=== PATIENT | female | born 1990 | race Caucasian/White ===

== ENCOUNTER → 2017-11-20 | Outpatient (REF) | payer OTHER ==
[2017-11-20 12:16] LABS: HEMATOCRIT 36.4 % (36.0-47.0); HEMOGLOBIN 12.3 g/dl (12.0-15.5); MEAN CORPUSCULAR HEMOGLOBIN 28.1 pg (27.0-33.0); MEAN CORPUSCULAR HGB CONC 33.8 g/dl (32.0-36.5); MEAN CORPUSCULAR VOLUME 83.1 fl (80.0-96.0); PLATELET COUNT, AUTOMATED 345 10^3/uL (150-450); RED BLOOD COUNT 4.38 10^6/uL (4.00-5.40); WHITE BLOOD COUNT 7.1 10^3/uL (4.0-10.0)
== END ==
LOC: M SFHCADAM 09:08
DX: N92.0 Excessive and frequent menstruation with regular cycle (principal)

== ENCOUNTER → 2017-11-22 | Outpatient (CLI) | payer BC | LOC: M WHC 12:45 | DX: N92.0 Excessive and frequent menstruation with regular cycle (principal) | CPT/HCPCS: 76830 ==

== ENCOUNTER → 2018-01-28 | Outpatient (REF) | payer OTHER | LOC: M SFHCADAM 11:40 | DX: E03.9 Hypothyroidism, unspecified (principal) ==

== ENCOUNTER → 2018-02-06 | Outpatient (REF) | payer OTHER | LOC: M SFHCADAM 09:47 | DX: Z12.4 Encounter for screening for malignant neoplasm of cervix (principal) | CPT/HCPCS: G0123 ==

== ENCOUNTER → 2018-06-07 | Outpatient (REF) | payer OTHER ==
[~2018-06-07] MED LIST: IBUP80TA PO; MAPA500T2 PO; PRENTAB55 PO; TYLE1TAB5 PO
[2018-06-07 19:35] LABS: FREE T4 0.95 NG/DL (0.76-1.46); THYROID STIMULATING HORMONE 2.23 uIU/ML (0.358-3.740)
== END ==
LOC: M SFHCADAM 15:21
PROVIDERS: ATTEND Physician Assistant
DX: E03.9 Hypothyroidism, unspecified (principal)

== ENCOUNTER → 2020-05-13 | Outpatient (REF) | payer OTHER | LOC: M SFHCADAM 13:52 | PROVIDERS: ATTEND Physician Assistant | DX: F41.9 Anxiety disorder, unspecified (principal); E03.9 Hypothyroidism, unspecified; G43.009 Migraine without aura, not intractable, without status migrainosus ==

== ENCOUNTER → 2020-05-14 | Outpatient (REF) | payer OTHER ==
[2020-05-14 13:00] LABS: HEMATOCRIT 38.9 % (36.0-47.0); HEMOGLOBIN 12.5 g/dl (12.0-15.5); MEAN CORPUSCULAR HEMOGLOBIN 27.6 pg (27.0-33.0); MEAN CORPUSCULAR HGB CONC 32.1 g/dl (32.0-36.5); MEAN CORPUSCULAR VOLUME 85.9 fl (80.0-96.0); PLATELET COUNT, AUTOMATED 348 10^3/uL (150-450); RED BLOOD COUNT 4.53 10^6/uL (4.00-5.40); WHITE BLOOD COUNT 6.5 10^3/uL (4.0-10.0)
[2020-05-14 13:44] LABS: ALBUMIN 3.4 GM/DL (3.2-5.2); ALT/SGPT 28 U/L (12-78); BILIRUBIN,TOTAL 0.3 MG/DL (0.2-1.0); BLOOD UREA NITROGEN 14 MG/DL (7-18); CALCIUM LEVEL 9.9 MG/DL (8.5-10.1); CARBON DIOXIDE LEVEL 26 MEQ/L (21-32); CHLORIDE LEVEL 105 MEQ/L (98-107); CREATININE FOR GFR 0.68 MG/DL (0.55-1.30); FREE T4 0.97 NG/DL (0.76-1.46); GLOMERULAR FILTRATION RATE > 60.0 (>60); GLUCOSE, FASTING 85 MG/DL (70-100); POTASSIUM SERUM 4.6 MEQ/L (3.5-5.1); SODIUM LEVEL 137 MEQ/L (136-145); TOTAL PROTEIN 7.3 GM/DL (6.4-8.2)
== END ==
LOC: M SFHCADAM 09:06
PROVIDERS: ATTEND Physician Assistant
DX: F41.9 Anxiety disorder, unspecified (principal); E03.9 Hypothyroidism, unspecified; G43.009 Migraine without aura, not intractable, without status migrainosus

== ENCOUNTER → 2020-08-31 | Outpatient (CLI) | payer OTHER | LOC: M LABSMTC 10:02 | PROVIDERS: ATTEND Pediatrics | DX: Z11.52 Encounter for screening for COVID-19 (principal) ==

== ENCOUNTER 2020-10-22 17:26 | Emergency (ER) | payer OTHER ==
[~2020-10-22] VITALS: Ht 162.6 cm; Wt 99.0 kg
[2020-10-22] MEDS ORDERED: LEXA1TAB2 PO (17:35)
[2020-10-22] MEDS ORDERED: LEVO-86 PO (17:35)
[2020-10-22] MEDS ORDERED: CYCL-707 PO (17:35)
--- NOTE | 2020-10-22 18:47 | REP ---
INDICATION: abdominal pain, ? constipation COMPARISON: None. TECHNIQUE: Supine view of the abdomen and pelvis. FINDINGS: Bowel gas pattern is nonspecific and without obstruction or perforation. No significant fecal stasis is suggested. No organomegaly. No abnormal calcifications. Skeletal structures intact. IMPRESSION: Normal abdominal radiograph. <Electronically signed by Maynor Tellez > 10/22/20 [id number]
--- NOTE | 2020-10-22 21:01 | REPVR ---
PROCEDURE INFORMATION: Exam: US Pelvis Complete, Transabdominal and US Duplex Artery and Vein, Ovaries, Complete Exam date and time: 10/22/2020 8:02 PM Age: 30 years old Clinical indication: Pelvic pain TECHNIQUE: Imaging protocol: Real-time transabdominal pelvic ultrasound with image documentation. Real-time duplex ultrasound scan of the arterial and venous flow of the ovaries with B-mode, color Doppler flow and spectral waveform analysis. Complete Pelvis, Complete Duplex. COMPARISON: PELVIS NON-OB COMPLETE US 11/22/2017 12:55 PM FINDINGS: Uterus/cervix: The uterus measures 10 x 5.4 by 6.3 cm. Endometrial stripe measures 1 in thickness. Right adnexa:Right ovary measures 2.5 x 2.1 x 1.7 cm. Arterial and venous blood flow seen in the right ovary on color Doppler examination. Left adnexa: The left ovary measures 3.7 x 3 x 3.2 cm. 0.8 cm complex follicle/cyst present in the left ovary. Arterial and venous blood flow demonstrated to the left ovary on color Doppler and pulse Doppler examination. Free fluid: None. Bladder: Bladder is incompletely distended which limits visualization of the uterus and the adnexa. IMPRESSION: 1. No evidence of ovarian torsion. 2. Complex follicle in the left ovary within the range of normal for a menstruating female and could represent a hemorrhagic follicle/cyst. 3. The endometrial stripe is thickened. This could be an artifact of measurement or reflect endometrial hyperplasia, dysplasia or polyps as the most likely etiologies in this patient. Follow-up ultrasound in 6 weeks might be considered Electronically signed by: Tamika Saucedo On 10/22/2020 21:00:14 PM
[2020-10-22 21:41] VITALS: BP 139/91
== END 2020-10-22 21:43 | disposition home or self-care (01) ==
LOC: M ED 17:26
DX: N85.00 Endometrial hyperplasia, unspecified (principal); Z79.899 Other long term (current) drug therapy

== ENCOUNTER → 2020-11-09 | Outpatient (REF) | payer OTHER ==
[~2020-11-09] MED LIST changes: +CYCL-707 PO; +LEVO-86 PO; +LEXA1TAB2 PO
[2020-11-09 17:30] LABS: FREE T4 0.95 NG/DL (0.76-1.46); THYROID STIMULATING HORMONE 1.78 uIU/ML (0.358-3.740)
[2020-11-09 17:32] LABS: LUTEINIZING HORMONE 10.7 mIU/mL
[2020-11-09 17:33] LABS: FOLLICLE STIMULATING HORMONE 5.5 mIU/mL
[2020-11-09 17:47] LABS: HEMATOCRIT 36.7 % (36.0-47.0); HEMOGLOBIN 11.8 g/dl (12.0-15.5); MEAN CORPUSCULAR HEMOGLOBIN 26.3 pg (27.0-33.0); MEAN CORPUSCULAR HGB CONC 32.2 g/dl (32.0-36.5); MEAN CORPUSCULAR VOLUME 81.9 fl (80.0-96.0); PLATELET COUNT, AUTOMATED 355 10^3/uL (150-450); RED BLOOD COUNT 4.48 10^6/uL (4.00-5.40); WHITE BLOOD COUNT 5.4 10^3/uL (4.0-10.0)
== END ==
LOC: M LAB REF 16:29
PROVIDERS: ATTEND Obstetrics & Gynecology
DX: N92.1 Excessive and frequent menstruation with irregular cycle (principal)

== ENCOUNTER → 2021-03-04 | Outpatient (REF) | payer OTHER | LOC: M SFHCADAM 15:56 | PROVIDERS: ATTEND Physician Assistant | DX: J06.9 Acute upper respiratory infection, unspecified (principal) ==

== ENCOUNTER → 2021-05-10 | Outpatient (REF) | payer OTHER ==
[2021-05-10 14:06] LABS: FREE T4 1.02 NG/DL (0.76-1.46); THYROID STIMULATING HORMONE 2.37 uIU/ML (0.358-3.740)
== END ==
LOC: M SFHCADAM 09:36
PROVIDERS: ATTEND Physician Assistant
DX: Z12.4 Encounter for screening for malignant neoplasm of cervix (principal); E03.9 Hypothyroidism, unspecified

== ENCOUNTER → 2021-12-27 | Outpatient (CLI) | payer OTHER | LOC: M WUC 10:40 | PROVIDERS: ATTEND Student in an Organized Health Care Education/Training Program | DX: M25.511 Pain in right shoulder (principal) ==

== ENCOUNTER → 2022-04-13 | Outpatient (CLI) | payer OTHER ==
[~2022-04-13] MED LIST changes: +ISOVUE-370 76% 100ML VIAL As Ordered ONE
== END ==
LOC: M RAD 08:27
PROVIDERS: ATTEND Physician Assistant
DX: M89.8X1 Other specified disorders of bone, shoulder (principal); R22.2 Localized swelling, mass and lump, trunk

== ENCOUNTER → 2022-09-19 | Outpatient (CLI) | payer OTHER ==
[~2022-09-19] MED LIST changes: -ISOVUE-370 76% 100ML VIAL As Ordered ONE
== END ==
LOC: M ADAMS 14:59
PROVIDERS: ATTEND Physician Assistant
DX: S93.401S Sprain of unspecified ligament of right ankle, sequela (principal); X58.XXXA Exposure to other specified factors, initial encounter; Y92.9 Unspecified place or not applicable; Y93.9 Activity, unspecified; Y99.9 Unspecified external cause status

== ENCOUNTER → 2022-09-19 | Outpatient (REF) | payer OTHER ==
[2022-09-19 17:04] LABS: BASO # 0.1 10^3/uL (0.0-0.2); BASO % 1.2 % (0.0-1.0); EOS # 0.3 10^3/uL (0.0-0.5); EOS % 4.6 % (0.0-3.0); HEMATOCRIT 41.3 % (36.0-47.0); HEMOGLOBIN 13.8 g/dl (12.0-15.5); LYMPH # 1.9 10^3/uL (1.5-5.0); LYMPH % 28.7 % (24.0-44.0); MEAN CORPUSCULAR HEMOGLOBIN 29.2 pg (27.0-33.0); MEAN CORPUSCULAR HGB CONC 33.4 g/dl (32.0-36.5); MEAN CORPUSCULAR VOLUME 87.5 fl (80.0-96.0); MONO # 0.5 10^3/uL (0.0-0.8); MONO % 7.2 % (2.0-8.0); NEUTROPHILS # 3.9 10^3/uL (1.5-8.5); NEUTROPHILS % 57.9 % (36.0-66.0); PLATELET COUNT, AUTOMATED 334 10^3/uL (150-450); RED BLOOD COUNT 4.72 10^6/uL (4.00-5.40); WHITE BLOOD COUNT 6.8 10^3/uL (4.0-10.0)
[2022-09-19 17:29] LABS: FREE T4 1.05 NG/DL (0.89-1.76)
[2022-09-19 17:31] LABS: ALBUMIN 3.7 G/DL (3.2-5.2); ALKALINE PHOSPHATASE 97 U/L (46-116); ALT/SGPT 27 U/L (7.0-40); AST/SGOT 19 U/L (<34); BILIRUBIN,TOTAL 0.3 MG/DL (0.3-1.2); BLOOD UREA NITROGEN 11 MG/DL (9-23); CALCIUM LEVEL 9.4 MG/DL (8.5-10.1); CARBON DIOXIDE LEVEL 26 MMOL/L (20-31); CHLORIDE LEVEL 103 MMOL/L (98-107); CREATININE FOR GFR 0.68 MG/DL (0.55-1.30); GLOMERULAR FILTRATION RATE > 60.0 (>60); GLUCOSE, FASTING 85 MG/DL (60-100); POTASSIUM SERUM 4.2 MMOL/L (3.5-5.1); SODIUM LEVEL 139 MMOL/L (136-145); THYROID STIMULATING HORMONE 1.322 uIU/ML (0.55-4.78); TOTAL PROTEIN 6.8 G/DL (5.7-8.2)
== END ==
LOC: M SFHCADAM 14:38
PROVIDERS: ATTEND Physician Assistant
DX: R19.7 Diarrhea, unspecified (principal)

== ENCOUNTER → 2022-10-26 | Outpatient (REF) | payer OTHER | LOC: M SFHCADAM 15:57 | PROVIDERS: ATTEND Physician Assistant | DX: R19.7 Diarrhea, unspecified (principal) ==

== ENCOUNTER → 2023-08-29 | Outpatient (CLI) | payer BC, OTHER ==
[2023-08-29 10:05] LABS: BASO # 0.1 10^3/uL (0.0-0.2); BASO % 0.8 % (0.0-1.0); EOS # 0.1 10^3/uL (0.0-0.5); EOS % 1.9 % (0.0-3.0); HEMATOCRIT 41.5 % (36.0-47.0); LYMPH # 1.9 10^3/uL (1.5-5.0); LYMPH % 28.7 % (24.0-44.0); MEAN CORPUSCULAR HEMOGLOBIN 29.4 pg (27.0-33.0); MEAN CORPUSCULAR HGB CONC 33.7 g/dl (32.0-36.5); MONO # 0.4 10^3/uL (0.0-0.8); MONO % 6.5 % (2.0-8.0); NEUTROPHILS % 61.8 % (36.0-66.0); PLATELET COUNT, AUTOMATED 346 10^3/uL (150-450); RED BLOOD COUNT 4.77 10^6/uL (4.00-5.40); WHITE BLOOD COUNT 6.5 10^3/uL (4.0-10.0)
[2023-08-29 10:33] LABS: ALBUMIN 3.8 G/DL (3.2-5.2); ALKALINE PHOSPHATASE 96 U/L (46-116); ALT/SGPT 17 U/L (7.0-40); AST/SGOT 15 U/L (<34); BILIRUBIN,TOTAL 0.5 MG/DL (0.3-1.2); BLOOD UREA NITROGEN 13 MG/DL (9-23); CALCIUM LEVEL 8.9 MG/DL (8.5-10.1); CARBON DIOXIDE LEVEL 24 MMOL/L (20-31); CHLORIDE LEVEL 105 MMOL/L (98-107); CHOLESTEROL LEVEL 273 MG/DL (<200); CHOLESTEROL RISK RATIO 4.27 (<5); CREATININE FOR GFR 0.68 MG/DL (0.55-1.30); FREE T4 0.99 NG/DL (0.89-1.76); GLOMERULAR FILTRATION RATE > 60.0 (>60); GLUCOSE, FASTING 81 MG/DL (60-100); HDL CHOLESTEROL 63.8 MG/DL (>40); LDL CHOLESTEROL 172.8 MG/DL (<100); NON-HDL-C 209.2 MG/DL; SODIUM LEVEL 136 MMOL/L (136-145); THYROID STIMULATING HORMONE 3.809 uIU/ML (0.55-4.78); TOTAL PROTEIN 7.2 G/DL (5.7-8.2); TRIGLYCERIDES LEVEL 182 MG/DL (<150)
== END ==
LOC: M RAD 08:54
PROVIDERS: ATTEND Registered Nurse
DX: I89.0 Lymphedema, not elsewhere classified (principal)

== ENCOUNTER → 2024-05-07 | Outpatient (CLI) | payer BC, OTHER | LOC: M WHC 13:53 | PROVIDERS: ATTEND Registered Nurse | DX: Z12.31 Encounter for screening mammogram for malignant neoplasm of breast (principal); N64.4 Mastodynia; R92.333 Mammographic heterogeneous density, bilateral breasts ==

== ENCOUNTER → 2024-07-29 | Outpatient (CLI) | payer OTHER ==
[2024-07-29 14:29] LABS: BASO # 0.1 10^3/uL (0.0-0.2); BASO % 0.8 % (0.0-1.0); EOS # 0.2 10^3/uL (0.0-0.5); EOS % 2.6 % (0.0-3.0); HEMATOCRIT 41.4 % (36.0-47.0); HEMOGLOBIN 13.7 g/dl (12.0-15.5); LYMPH # 2.1 10^3/uL (1.5-5.0); MEAN CORPUSCULAR HEMOGLOBIN 29.2 pg (27.0-33.0); MEAN CORPUSCULAR HGB CONC 33.1 g/dl (32.0-36.5); MEAN CORPUSCULAR VOLUME 88.3 fl (80.0-96.0); MONO # 0.4 10^3/uL (0.0-0.8); MONO % 5.8 % (2.0-8.0); NEUTROPHILS # 3.9 10^3/uL (1.5-8.5); NEUTROPHILS % 58.6 % (36.0-66.0); PLATELET COUNT, AUTOMATED 352 10^3/uL (150-450); RED BLOOD COUNT 4.69 10^6/uL (4.00-5.40); WHITE BLOOD COUNT 6.6 10^3/uL (4.0-10.0)
[2024-07-29 14:37] LABS: ALBUMIN 3.5 G/DL (3.2-5.2); ALKALINE PHOSPHATASE 93 U/L (35-104); ALT/SGPT 18 U/L (7.0-40); AST/SGOT 15 U/L (<34); BILIRUBIN,TOTAL 0.4 MG/DL (0.3-1.2); BLOOD UREA NITROGEN 12 MG/DL (9-23); C REACTIVE PROTEIN QUANTITATIV 0.95 MG/DL (<1.0); CALCIUM LEVEL 9.1 MG/DL (8.5-10.1); CARBON DIOXIDE LEVEL 25 MMOL/L (20-31); CHLORIDE LEVEL 106 MMOL/L (98-107); CHOLESTEROL LEVEL 261 MG/DL (<200); CHOLESTEROL RISK RATIO 3.96 (<5); CREATININE FOR GFR 0.64 MG/DL (0.55-1.30); GLOMERULAR FILTRATION RATE > 60.0 (>60); GLUCOSE, FASTING 86 MG/DL (60-100); HDL CHOLESTEROL 65.8 MG/DL (>40); LDL CHOLESTEROL 159.2 MG/DL (<100); NON-HDL-C 195.2 MG/DL; POTASSIUM SERUM 4.6 MMOL/L (3.5-5.1); SODIUM LEVEL 138 MMOL/L (136-145); TOTAL PROTEIN 7.1 G/DL (5.7-8.2); TRIGLYCERIDES LEVEL 180 MG/DL (<150)
[2024-07-29 14:38] LABS: FREE T4 0.94 NG/DL (0.89-1.76); RHEUMATOID FACTOR QUANT < 3.5 IU/ML (<14)
[2024-07-29 14:40] LABS: THYROID PEROXIDASE ANTIBODY 33 U/ML (<60.0)
[2024-07-29 14:42] LABS: URIC ACID 4.3 MG/DL (3.1-7.8)
[2024-07-29 14:45] LABS: ERYTHROCYTE SEDIMENTATION RATE 25 mm/hr (0-20)
[2024-07-29 14:53] LABS: HEMOGLOBIN A1c 4.9 % (4.0-6.0)
[2024-07-30 16:57] LABS: ANA SCREEN, IFA NEGATIVE (NEGATIVE)
== END ==
LOC: M ADAMS 07:23
PROVIDERS: ATTEND Registered Nurse
DX: E03.9 Hypothyroidism, unspecified (principal); E66.9 Obesity, unspecified; M25.50 Pain in unspecified joint

== ENCOUNTER → 2024-10-30 | Outpatient (CLI) | payer OTHER | LOC: M WUC 09:20 | PROVIDERS: ATTEND Registered Nurse | DX: M25.549 Pain in joints of unspecified hand (principal) ==